=== PATIENT | male | born 1940 | race Caucasian/White ===

== ENCOUNTER 2021-09-21 10:47 | Outpatient (CLI) | payer MEDICARE, OTHER | END 2021-09-21 10:48 | disposition home or self-care (01) | LOC: BICULT 10:47 | PROVIDERS: ATTEND Internal Medicine Nephrology | DX: N18.4 Chronic kidney disease, stage 4 (severe) (principal); N28.1 Cyst of kidney, acquired; R94.4 Abnormal results of kidney function studies | CPT/HCPCS: 76770; 93975 ==

== ENCOUNTER 2022-10-20 10:03 | Outpatient (CLI) | payer MEDICARE, OTHER ==
[2022-10-20 11:03] LABS: Hemoglobin 8.1 g/dL (13.5-17.5); Mean Corpuscular HGB CONC 32.8 g/dL (32.0-36.0); Mean Corpuscular Hemoglobin 30.2 pg (27.0-33.0); Mean Corpuscular Volume 92.2 fl (81.2-95.1); Mean Platelet Volume 10.1 fl (7.4-10.4); Platelet Count 134 10x3/uL (150-450); RBC Distribution Width 14.1 % (11.5-14.5); Red Blood Cell (RBC) Count 2.68 10x6/uL (4.32-5.72); White Blood Cell (WBC) Count 7.8 10x3/uL (3.5-10.5)
[2022-10-20 11:38] LABS: Anion Gap 16 mmol/L (10-20); BUN (Urea Nitrogen) 79 mg/dL (8.4-25.7); Calc. Creatinine Clearance 0 mL/min (70-130); Calcium 8.3 mg/dL (7.8-10.44); Carbon Dioxide 16 mmol/L (23-31); Chloride 110 mmol/L (98-107); Estimated GFR 12; Glucose 93 mg/dL (83-110); Potassium 4.1 mmol/L (3.5-5.1); Sodium 138 mmol/L (136-145)
== END 2022-10-20 10:04 | disposition home or self-care (01) ==
LOC: LABBT 10:03
PROVIDERS: ATTEND Internal Medicine Cardiovascular Disease
DX: Z01.812 Encounter for preprocedural laboratory examination (principal); I50.22 Chronic systolic (congestive) heart failure
CPT/HCPCS: 80048; 85027

== ENCOUNTER 2022-10-23 09:10 | Day surgery (SDC) | payer MEDICARE, OTHER ==
[2022-10-20 11:18] VITALS: BMI 23.7
[~2022-10-23 09:10] MED LIST: Iopamidol 370 76% 100 ML VIAL ONE
[2022-10-23 10:42] LABS: #Eosinphils 0.3 thou/uL (0.0-0.7); #Lymphocytes 1.8 thou/uL (1.20-3.40); #Monocytes 0.6 thou/uL (0.11-0.59); #Neutrophils 5.2 thou/uL (1.40-6.50); %Basophils 0.3 % (0.0-1.0); %Eosinophils 3.3 % (0.0-10.0); %Lymphocytes 22.3 % (21.0-51.0); %Monocytes 7.6 % (0.0-10.0); %Neutrophils 66.5 % (42.0-75.0); Hemoglobin 8.7 g/dL (14.0-18.0); Mean Corpuscular HGB CONC 34.5 g/dL (32.0-36.0); Mean Corpuscular Hemoglobin 32.2 pg (27.0-31.0); Mean Corpuscular Volume 93.3 fl (78.0-98.0); Mean Platelet Volume 7.8 fL (7.4-10.4); Platelet Count 120 10x3/uL (130-400); RBC Distribution Width 12.8 % (11.5-14.5); Red Blood Cell (RBC) Count 2.71 mill/uL (4.70-6.10); White Blood Cell (WBC) Count 7.8 10x3/uL (4.8-10.8)
[2022-10-23] MEDS ORDERED: Gentamicin 80 MG/2 ML VIAL ONE (11:19)
[2022-10-23] MEDS ORDERED: CEFAZOLIN 1 GM VIAL ONE (11:19)
[2022-10-23] MEDS ORDERED: Lidocaine 1% (PF) 30 ML VIAL ONE (11:19)
[2022-10-23] MEDS ORDERED: Lidocaine 1% PF 5 ML VIAL ONE (12:12)
[2022-10-23] MEDS ORDERED: PROPOFOL 200 MG/20 ML VIAL ONE (12:12)
[2022-10-23] MEDS ORDERED: hydrALAZINE 25 MG TAB ONE (16:08)
[2022-10-23] MEDS ORDERED: Cephalexin 250 MG CAP PO SCH ×2 (17:00→21:00)
== END 2022-10-23 17:35 | disposition home or self-care (01) ==
LOC: SDC 09:10
PROVIDERS: ATTEND Internal Medicine Cardiovascular Disease
PROC: 0JH606Z Insertion of Pacemaker, Dual Chamber into Chest Subcutaneous Tissue and Fascia, Open Approach (ICD-10-PCS; principal; 2022-10-23)
PROC: 02HL3JZ Insertion of Pacemaker Lead into Left Ventricle, Percutaneous Approach (ICD-10-PCS; 2022-10-23)
PROC: 02H63JZ Insertion of Pacemaker Lead into Right Atrium, Percutaneous Approach (ICD-10-PCS; 2022-10-23)
PROC: 02HK3JZ Insertion of Pacemaker Lead into Right Ventricle, Percutaneous Approach (ICD-10-PCS; 2022-10-23)
DX: I13.0 Hypertensive heart and chronic kidney disease with heart failure and stage 1 through stage 4 chronic kidney disease, or unspecified chronic kidney disease (principal); E11.22 Type 2 diabetes mellitus with diabetic chronic kidney disease; N18.9 Chronic kidney disease, unspecified; I50.22 Chronic systolic (congestive) heart failure; I44.7 Left bundle-branch block, unspecified; I42.8 Other cardiomyopathies; I42.0 Dilated cardiomyopathy; E78.5 Hyperlipidemia, unspecified; Z79.82 Long term (current) use of aspirin; Z79.899 Other long term (current) drug therapy
CPT/HCPCS: 33208; 33225; 71045; 85025; 93005; 93010; C1882; C1898; C1900; J0690; J1580; J2001; J2704; Q9967

== ENCOUNTER 2022-10-31 12:52 | Inpatient (IN) | payer MEDICARE, OTHER ==
[2022-10-31 13:36] LABS: #Eosinphils 0.1 thou/uL (0.0-0.7); #Lymphocytes 0.8 thou/uL (1.20-3.40); #Monocytes 0.9 thou/uL (0.11-0.59); %Basophils 0.1 % (0.0-1.0); %Eosinophils 0.6 % (0.0-10.0); %Lymphocytes 8.5 % (21.0-51.0); %Monocytes 8.8 % (0.0-10.0); Hemoglobin 7.3 g/dL (14.0-18.0); Mean Corpuscular HGB CONC 35.1 g/dL (32.0-36.0); Mean Corpuscular Hemoglobin 32.3 pg (27.0-31.0); Mean Platelet Volume 7.9 fL (7.4-10.4); Platelet Count 147 10x3/uL (130-400); RBC Distribution Width 12.4 % (11.5-14.5); Red Blood Cell (RBC) Count 2.25 mill/uL (4.70-6.10); White Blood Cell (WBC) Count 9.7 10x3/uL (4.8-10.8)
[2022-10-31 13:57] LABS: ALT (SGPT) Less than 7 U/L (8-55); AST (SGOT) 21 U/L (5-34); Albumin 3.6 g/dL (3.4-4.8); Alkaline Phosphatase 55 U/L (40-110); Anion Gap 19 mmol/L (10-20); Bilirubin, Total 0.4 mg/dL (0.2-1.2); Calc. Creatinine Clearance 0 mL/min (70-130); Calcium 8.8 mg/dL (7.8-10.44); Carbon Dioxide 13 mmol/L (23-31); Chloride 106 mmol/L (98-107); Estimated GFR 6; Globulin 2.7 g/dL (2.4-3.5); Glucose 136 mg/dL (83-110); Protein, Total 6.3 g/dL (5.8-8.1); Sodium 132 mmol/L (136-145)
[2022-10-31 14:09] LABS: BUN (Urea Nitrogen) 145 mg/dL (8.4-25.7)
[2022-10-31 14:18] LABS: Potassium 6.1 mmol/L (3.5-5.1)
[2022-10-31] MEDS ORDERED: CALCIUM GLUC 1 GM/NS 50 ML BAG ONE (14:27)
[2022-10-31] MEDS ORDERED: Sodium Bicarb 50 MEQ/50 ML VIAL ONE (14:27)
[2022-10-31] MEDS ORDERED: Insulin Regular 300 UNITS/3 ML VIAL ONE (14:27)
[2022-10-31] MEDS ORDERED: Dextrose 50% Abboject 50 ML SYRINGE ONE (14:38)
[2022-10-31 14:43] LABS: Base Excess -19.8 mEq/L (-2.0 to +3.0); Chloride (VBG) 101 mmol/L (98-106); Sodium 125.2 mmol/L (133-146)
[2022-10-31 14:46] LABS: pH (venous) 7.17 (7.32-7.43)
[2022-10-31] MEDS ORDERED: LOKELMA 10 GM PACKET PO SCH (15:00)
[2022-10-31] MEDS ORDERED: Acetaminophen 325 MG TAB PO PRN (15:22)
[2022-10-31] MEDS ORDERED: Sodium Chloride 0.9% 1,000 ML IV SCH (15:30)
[2022-10-31] MEDS ORDERED: Sodium Bicarbonate 150 MEQ in Dextrose 5% in Water 1,000 ML IV SCH (16:00)
[2022-10-31 17:46] VITALS: BMI 24.9
[2022-10-31 19:00] LABS: Bacteria/HPF None Seen HPF (None Seen); Bilirubin Negative (Negative); Blood, Urine 3+ (Negative); CAUTI Indications for Culture Pelvic or flank pain; Clarity Turbid (Clear); Glucose, Urine (Dipstick) Normal (Negative); Ketone, Urine Negative (Negative); Leukocyte 250 Leu/uL (Negative); Nitrite Negative (Negative); Protein, Urine (Dipstick) 100 mg/dL (Neg-Trace); RBC/HPF Greater than 50 HPF (0-3); Specific Gravity, Urine 1.013 (1.002-1.036); Squamous Epithelial None Seen HPF (0-3); Urobilinogen Normal mg/dL (Less than 2); WBC/HPF 21-50 HPF (0-3); pH, Urine 5.5 (5.0-9.0)
[2022-10-31 19:01] LABS: Urine Culture Reflex Yes Yes
[2022-10-31] MEDS: hydrALAZINE 25 MG TAB PO SCH (21:22)
[2022-10-31] MEDS: Tamsulosin HCl 0.4 MG CAP PO SCH (21:23)
[2022-10-31] MEDS: Rosuvastatin 5 MG TAB PO SCH (21:23)
[2022-10-31] MEDS: Isosorbide Dinitrate 5 MG TAB PO SCH (21:23)
[2022-10-31] MEDS: Heparin 5,000 UNITS/ML VIAL SC SCH (21:23)
[2022-11-01 05:09] LABS: #Eosinphils 0.1 thou/uL (0.0-0.7); #Monocytes 0.6 thou/uL (0.11-0.59); #Neutrophils 4.8 thou/uL (1.40-6.50); %Basophils 0.1 % (0.0-1.0); %Lymphocytes 15.6 % (21.0-51.0); %Monocytes 8.6 % (0.0-10.0); %Neutrophils 73.6 % (42.0-75.0); Hemoglobin 6.3 g/dL (14.0-18.0); Mean Corpuscular HGB CONC 34.5 g/dL (32.0-36.0); Mean Corpuscular Hemoglobin 32.2 pg (27.0-31.0); Mean Corpuscular Volume 93.2 fl (78.0-98.0); Mean Platelet Volume 7.7 fL (7.4-10.4); Platelet Count 119 10x3/uL (130-400); RBC Distribution Width 12.3 % (11.5-14.5); Red Blood Cell (RBC) Count 1.97 mill/uL (4.70-6.10); White Blood Cell (WBC) Count 6.6 10x3/uL (4.8-10.8)
[2022-11-01 05:34] LABS: ALT (SGPT) 14 U/L (8-55); AST (SGOT) 30 U/L (5-34); Alkaline Phosphatase 47 U/L (40-110); Anion Gap 21 mmol/L (10-20); Bilirubin, Total 0.4 mg/dL (0.2-1.2); Calc. Creatinine Clearance 8 mL/min (70-130); Calcium 8.5 mg/dL (7.8-10.44); Carbon Dioxide 13 mmol/L (23-31); Chloride 106 mmol/L (98-107); Estimated GFR 6; Globulin 2.2 g/dL (2.4-3.5); Glucose 113 mg/dL (83-110); Potassium 4.9 mmol/L (3.5-5.1); Protein, Total 5.2 g/dL (5.8-8.1); Sodium 135 mmol/L (136-145)
[2022-11-01 05:45] LABS: BUN (Urea Nitrogen) 142 mg/dL (8.4-25.7)
[2022-11-01] MEDS: hydrALAZINE 25 MG TAB PO SCH ×3 (09:05→21:32)
[2022-11-01] MEDS: Finasteride 5 MG TAB PO SCH (09:05)
[2022-11-01] MEDS: Isosorbide Dinitrate 5 MG TAB PO SCH ×2 (09:06→21:33)
[2022-11-01] MEDS: Amlodipine 10 MG TAB PO SCH (09:06)
[2022-11-01] MEDS: Heparin 5,000 UNITS/ML VIAL SC SCH ×3 (09:11→21:32)
[2022-11-01] MEDS: Sodium Bicarbonate Tab 325 MG TAB PO SCH ×3 (09:24→21:33)
[2022-11-01] MEDS ORDERED: EPOETIN ALFA-EPBX (ESRD) 10,000 UNIT/ML VIAL SC SCH (12:00)
[2022-11-01 16:16] LABS: Actual Bicarbonate (HCO3v) 7 mEq/L (22-28)
[2022-11-01] MEDS: Tamsulosin HCl 0.4 MG CAP PO SCH (21:33)
[2022-11-01] MEDS: Rosuvastatin 5 MG TAB PO SCH (21:33)
[2022-11-02 05:20] LABS: Anion Gap 19 mmol/L (10-20); Calc. Creatinine Clearance 9 mL/min (70-130); Carbon Dioxide 15 mmol/L (23-31); Chloride 106 mmol/L (98-107); Estimated GFR 8; Glucose 100 mg/dL (83-110); Potassium 4.2 mmol/L (3.5-5.1); Sodium 136 mmol/L (136-145)
[2022-11-02 05:31] LABS: BUN (Urea Nitrogen) 131 mg/dL (8.4-25.7)
[2022-11-02 07:30] LABS: #Eosinphils 0.3 thou/uL (0.0-0.7); #Lymphocytes 1.3 thou/uL (1.20-3.40); #Monocytes 0.7 thou/uL (0.11-0.59); #Neutrophils 5.6 thou/uL (1.40-6.50); %Basophils 0.2 % (0.0-1.0); %Eosinophils 3.2 % (0.0-10.0); %Lymphocytes 16.2 % (21.0-51.0); %Monocytes 8.8 % (0.0-10.0); %Neutrophils 71.7 % (42.0-75.0); Hemoglobin 7.4 g/dL (14.0-18.0); Mean Corpuscular HGB CONC 33.4 g/dL (32.0-36.0); Mean Corpuscular Hemoglobin 31.2 pg (27.0-31.0); Mean Corpuscular Volume 93.5 fl (78.0-98.0); Mean Platelet Volume 8.2 fL (7.4-10.4); Platelet Count 148 10x3/uL (130-400); RBC Distribution Width 12.4 % (11.5-14.5); Red Blood Cell (RBC) Count 2.38 mill/uL (4.70-6.10); White Blood Cell (WBC) Count 7.9 10x3/uL (4.8-10.8)
[2022-11-02] MEDS ORDERED: Finasteride 5 MG TAB PO SCH (09:00)
[2022-11-02] MEDS: hydrALAZINE 25 MG TAB PO SCH ×3 (09:50→20:35)
[2022-11-02] MEDS: Finasteride 5 MG TAB PO SCH (09:50)
[2022-11-02] MEDS: Amlodipine 10 MG TAB PO SCH (09:50)
[2022-11-02] MEDS: Isosorbide Dinitrate 5 MG TAB PO SCH ×2 (09:51→20:36)
[2022-11-02] MEDS: Sodium Bicarbonate Tab 325 MG TAB PO SCH ×3 (09:51→20:35)
[2022-11-02] MEDS: Heparin 5,000 UNITS/ML VIAL SC SCH ×3 (13:04→20:38)
[2022-11-02] MEDS: Rosuvastatin 5 MG TAB PO SCH (20:35)
[2022-11-02] MEDS: Tamsulosin HCl 0.4 MG CAP PO SCH (20:36)
[2022-11-03 04:13] LABS: #Eosinphils 0.3 thou/uL (0.0-0.7); #Lymphocytes 1.2 thou/uL (1.20-3.40); #Monocytes 0.6 thou/uL (0.11-0.59); #Neutrophils 4.8 thou/uL (1.40-6.50); %Basophils 0.2 % (0.0-1.0); %Eosinophils 3.9 % (0.0-10.0); %Lymphocytes 17.7 % (21.0-51.0); %Monocytes 8.7 % (0.0-10.0); %Neutrophils 69.5 % (42.0-75.0); Hemoglobin 7.1 g/dL (14.0-18.0); Mean Corpuscular HGB CONC 33.5 g/dL (32.0-36.0); Mean Corpuscular Hemoglobin 30.9 pg (27.0-31.0); Mean Corpuscular Volume 92.3 fl (78.0-98.0); Mean Platelet Volume 7.5 fL (7.4-10.4); Platelet Count 125 10x3/uL (130-400); RBC Distribution Width 12.4 % (11.5-14.5); Red Blood Cell (RBC) Count 2.28 mill/uL (4.70-6.10); White Blood Cell (WBC) Count 6.9 10x3/uL (4.8-10.8)
[2022-11-03 04:35] LABS: Anion Gap 20 mmol/L (10-20); Calc. Creatinine Clearance 10 mL/min (70-130); Calcium 7.7 mg/dL (7.8-10.44); Carbon Dioxide 15 mmol/L (23-31); Chloride 107 mmol/L (98-107); Estimated GFR 8; Glucose 106 mg/dL (83-110); Potassium 3.9 mmol/L (3.5-5.1); Sodium 138 mmol/L (136-145)
[2022-11-03 04:46] LABS: BUN (Urea Nitrogen) 122 mg/dL (8.4-25.7)
[2022-11-03] MEDS: Sodium Bicarbonate Tab 325 MG TAB PO SCH ×3 (09:20→20:50)
[2022-11-03] MEDS: Isosorbide Dinitrate 5 MG TAB PO SCH ×2 (09:21→20:50)
[2022-11-03] MEDS: hydrALAZINE 25 MG TAB PO SCH ×3 (09:21→20:50)
[2022-11-03] MEDS: Finasteride 5 MG TAB PO SCH (09:23)
[2022-11-03] MEDS: Amlodipine 10 MG TAB PO SCH (09:24)
[2022-11-03] MEDS: Heparin 5,000 UNITS/ML VIAL SC SCH ×3 (09:26→20:43)
[2022-11-03] MEDS: Rosuvastatin 5 MG TAB PO SCH (20:50)
[2022-11-03] MEDS: Tamsulosin HCl 0.4 MG CAP PO SCH (20:50)
[2022-11-04 08:34] LABS: Anion Gap 16 mmol/L (10-20); BUN (Urea Nitrogen) 124 mg/dL (8.4-25.7); Calc. Creatinine Clearance 11 mL/min (70-130); Calcium 7.7 mg/dL (7.8-10.44); Carbon Dioxide 17 mmol/L (23-31); Chloride 108 mmol/L (98-107); Estimated GFR 9; Glucose 94 mg/dL (83-110); Sodium 137 mmol/L (136-145)
[2022-11-04 08:44] LABS: Hemoglobin 7.8 g/dL (14.0-18.0); Mean Corpuscular HGB CONC 34.4 g/dL (32.0-36.0); Platelet Count 166 10x3/uL (130-400); RBC Distribution Width 12.1 % (11.5-14.5); Red Blood Cell (RBC) Count 2.45 mill/uL (4.70-6.10); White Blood Cell (WBC) Count 6.8 10x3/uL (4.8-10.8)
[2022-11-04] MEDS: Amlodipine 10 MG TAB PO SCH (08:57)
[2022-11-04] MEDS: Sodium Bicarbonate Tab 325 MG TAB PO SCH ×3 (08:57→21:05)
[2022-11-04] MEDS: hydrALAZINE 25 MG TAB PO SCH ×3 (08:57→21:05)
[2022-11-04] MEDS: Finasteride 5 MG TAB PO SCH (08:58)
[2022-11-04] MEDS: Isosorbide Dinitrate 5 MG TAB PO SCH ×2 (08:58→21:05)
[2022-11-04] MEDS: Heparin 5,000 UNITS/ML VIAL SC SCH ×3 (08:59→19:25)
[2022-11-04 10:44] LABS: Eosinophils 4 % (0-10); Lymphocytes 19 % (21-51); MDiff Complete? YES; Monocytes 6 % (0-10); Neutrophil 71 % (42-75); Platelet Morphology Comment Appears Adequate; Polychromasia SLIGHT = 2-3 cells (100X) (0-2/hpf)
[2022-11-04] MEDS: Rosuvastatin 5 MG TAB PO SCH (21:05)
[2022-11-04] MEDS: Tamsulosin HCl 0.4 MG CAP PO SCH (21:05)
[2022-11-05 07:00] LABS: #Eosinphils 0.3 thou/uL (0.0-0.7); #Lymphocytes 1.2 thou/uL (1.20-3.40); #Monocytes 0.6 thou/uL (0.11-0.59); #Neutrophils 6.8 thou/uL (1.40-6.50); %Basophils 0.3 % (0.0-1.0); %Eosinophils 3.6 % (0.0-10.0); %Lymphocytes 13.3 % (21.0-51.0); %Monocytes 6.3 % (0.0-10.0); %Neutrophils 76.5 % (42.0-75.0); Hemoglobin 8.4 g/dL (14.0-18.0); Mean Corpuscular HGB CONC 35.3 g/dL (32.0-36.0); Mean Corpuscular Hemoglobin 32.6 pg (27.0-31.0); Mean Corpuscular Volume 92.4 fl (78.0-98.0); Mean Platelet Volume 6.9 fL (7.4-10.4); Platelet Count 154 10x3/uL (130-400); RBC Distribution Width 12.2 % (11.5-14.5); Red Blood Cell (RBC) Count 2.58 mill/uL (4.70-6.10); White Blood Cell (WBC) Count 8.9 10x3/uL (4.8-10.8)
[2022-11-05 07:20] LABS: Anion Gap 18 mmol/L (10-20); BUN (Urea Nitrogen) 122 mg/dL (8.4-25.7); Calc. Creatinine Clearance 12 mL/min (70-130); Carbon Dioxide 16 mmol/L (23-31); Chloride 108 mmol/L (98-107); Estimated GFR 10; Glucose 94 mg/dL (83-110); Sodium 138 mmol/L (136-145)
[2022-11-05] MEDS: hydrALAZINE 25 MG TAB PO SCH ×3 (08:48→20:15)
[2022-11-05] MEDS: Sodium Bicarbonate Tab 325 MG TAB PO SCH ×3 (08:49→20:15)
[2022-11-05] MEDS: Heparin 5,000 UNITS/ML VIAL SC SCH ×3 (08:49→20:15)
[2022-11-05] MEDS: Finasteride 5 MG TAB PO SCH (08:49)
[2022-11-05] MEDS: Amlodipine 10 MG TAB PO SCH (08:49)
[2022-11-05] MEDS: Isosorbide Dinitrate 5 MG TAB PO SCH ×2 (09:01→20:15)
[2022-11-05] MEDS: Rosuvastatin 5 MG TAB PO SCH (20:15)
[2022-11-05] MEDS: Tamsulosin HCl 0.4 MG CAP PO SCH (20:16)
[2022-11-06 07:22] LABS: Anion Gap 15 mmol/L (10-20); BUN (Urea Nitrogen) 110 mg/dL (8.4-25.7); Calc. Creatinine Clearance 12 mL/min (70-130); Calcium 7.7 mg/dL (7.8-10.44); Carbon Dioxide 17 mmol/L (23-31); Chloride 110 mmol/L (98-107); Estimated GFR 10; Glucose 103 mg/dL (83-110); Potassium 3.6 mmol/L (3.5-5.1); Sodium 138 mmol/L (136-145)
[2022-11-06] MEDS: Sodium Bicarbonate Tab 325 MG TAB PO SCH ×3 (09:07→19:42)
[2022-11-06] MEDS: Heparin 5,000 UNITS/ML VIAL SC SCH ×3 (09:07→19:44)
[2022-11-06] MEDS: hydrALAZINE 25 MG TAB PO SCH ×3 (09:07→19:42)
[2022-11-06] MEDS: Finasteride 5 MG TAB PO SCH (09:07)
[2022-11-06] MEDS: Isosorbide Dinitrate 5 MG TAB PO SCH ×2 (09:13→19:43)
[2022-11-06] MEDS: Amlodipine 10 MG TAB PO SCH (09:13)
[2022-11-06] MEDS: Rosuvastatin 5 MG TAB PO SCH (19:43)
[2022-11-06] MEDS: Tamsulosin HCl 0.4 MG CAP PO SCH (19:43)
[2022-11-07] MEDS: hydrALAZINE 25 MG TAB PO SCH ×2 (08:33→15:03)
[2022-11-07] MEDS: Sodium Bicarbonate Tab 325 MG TAB PO SCH ×2 (08:33→15:03)
[2022-11-07] MEDS: Finasteride 5 MG TAB PO SCH (08:33)
[2022-11-07] MEDS: Tamsulosin HCl 0.4 MG CAP PO SCH (08:33)
[2022-11-07] MEDS: Amlodipine 10 MG TAB PO SCH (08:34)
[2022-11-07] MEDS: Isosorbide Dinitrate 5 MG TAB PO SCH (08:34)
[2022-11-07] MEDS: Heparin 5,000 UNITS/ML VIAL SC SCH ×2 (08:36→14:15)
[2022-11-07] MEDS ORDERED: Ergocalciferol 1.25 MG(50,000 UNITS) CAP PO SCH (09:00)
[2022-11-07 10:08] LABS: Anion Gap 17 mmol/L (10-20); BUN (Urea Nitrogen) 98 mg/dL (8.4-25.7); Calc. Creatinine Clearance 13 mL/min (70-130); Calcium 7.9 mg/dL (7.8-10.44); Carbon Dioxide 17 mmol/L (23-31); Chloride 109 mmol/L (98-107); Estimated GFR 11; Glucose 113 mg/dL (83-110); Potassium 4.1 mmol/L (3.5-5.1); Sodium 139 mmol/L (136-145)
[2022-11-07] MEDS ORDERED: Senokot 8.6 MG TAB PO PRN (11:12)
[2022-11-07 15:01] VITALS: TEMP 97.4
[2022-11-07 16:09] VITALS: BP 134/77
== END 2022-11-07 16:25 | disposition home health service (06) | DRG 641 ==
LOC: ERS 12:52 → 2NO 17:15 → T4-A 11-03 12:55
PROVIDERS: ADMIT Internal Medicine; ATTEND Internal Medicine
PROC: 30233N1 Transfusion of Nonautologous Red Blood Cells into Peripheral Vein, Percutaneous Approach (ICD-10-PCS; principal; 2022-11-01)
DX: E87.1 Hypo-osmolality and hyponatremia (principal); N17.9 Acute kidney failure, unspecified; I42.8 Other cardiomyopathies; N18.4 Chronic kidney disease, stage 4 (severe); E87.20 Acidosis, unspecified; Z66 Do not resuscitate; E87.5 Hyperkalemia; R33.9 Retention of urine, unspecified; D63.1 Anemia in chronic kidney disease; I12.9 Hypertensive chronic kidney disease with stage 1 through stage 4 chronic kidney disease, or unspecified chronic kidney disease; N13.9 Obstructive and reflux uropathy, unspecified; E78.5 Hyperlipidemia, unspecified; Z96.641 Presence of right artificial hip joint; Z95.0 Presence of cardiac pacemaker; Z79.899 Other long term (current) drug therapy
CPT/HCPCS: 36415; 36430; 72170; 76770; 80048; 80053; 81001; 82553; 82805; 84484; 85025; 86850; 86900; 86901; 87086; 93005; 93306; 96374; 96375; J0613; J1644; J1815; J7070; J7999; P9016; Q5105